=== PATIENT | male | born 1955 | race Caucasian/White ===

== ENCOUNTER 2020-07-29 15:17 | Inpatient (IN) | payer MEDICARE ==
[~2020-07-29] VITALS: Ht 172.7 cm; Wt 97.5 kg
[2020-07-29 16:07] LABS: BASOPHILS % 0.6 % (0.0-1.0); EOSINOPHILS # (AUTO) 0.1 (0.0-0.4); EOSINOPHILS % 2.2 % (0.0-6.0); HEMATOCRIT 41.8 % (38.2-49.6); HEMOGLOBIN 13.4 g/dL (14.0-18.0); LYMPHOCYTES # (AUTO) 1.3 (1.0-3.2); LYMPHOCYTES % 20.1 % (18.0-39.1); MEAN CORPUSCULAR HEMOGLOBIN 31.6 pg (28-32); MEAN CORPUSCULAR HGB CONC 32.1 g/dL (31-35); MEAN CORPUSCULAR VOLUME 98.6 fL (81-99); MONOCYTES # (AUTO) 0.3 (0.2-0.8); MONOCYTES % 4.2 % (4.4-11.3); NEUTROPHILS # (AUTO) 4.6 (2.1-6.9); NEUTROPHILS % 71.8 % (38.7-80.0); PLATELET COUNT 169 x10e3/uL (140-360); RED BLOOD COUNT 4.24 x10e6/uL (4.3-5.7); RED CELL DISTRIBUTION WIDTH 15.1 % (11.7-14.4)
[2020-07-29 16:54] LABS: ALBUMIN/GLOBULIN RATIO 1.1 (0.8-2.0); ANION GAP 23.4 mmol/L (8-16); CALCIUM 8.1 mg/dL (8.4-10.2); CREATININE, SERUM 3.73 mg/dL (0.72-1.25)
[2020-07-29 16:55] LABS: POTASSIUM 6.4 mmol/L (3.5-5.1)
[2020-07-29] MEDS ORDERED: SODIUM BICARBONATE 8.4% INJ 50 ML SYR IV STA (16:59)
[2020-07-29] MEDS ORDERED: CALCIUM GLUCONATE 10% INJ 4.65 MEQ in SODIUM CHLORIDE 0.9% 50ML 50 ML IV ONE (17:00)
[2020-07-29] MEDS ORDERED: INSULIN REGULAR, HUMAN 100 UNIT/1 ML 3ML VIAL IV ONE (17:00)
[2020-07-29] MEDS: SODIUM CHLORIDE 0.9% 1000ML 1,000 ML IV SCH (17:49)
[2020-07-29] MEDS ORDERED: SOD POLYSTYRENE SULFONATE SUSP 15 GM/60 ML BTL PO ONE (18:15)
[2020-07-29] MEDS ORDERED: CEFTRIAXONE 1 GM in SODIUM CHLORIDE 0.9% 50ML 50 ML IV SCH (20:00)
[2020-07-29] MEDS ORDERED: FUROSEMIDE INJ 10 MG/ML 4 ML VIAL IV ONE (20:30)
[2020-07-29 20:49] LABS: CLARITY,URINE CLEAR (CLEAR); COLOR,URINE YELLOW (YELLOW); KETONES,URINE NEGATIVE (NEGATIVE); LEUKOCYTE ESTERASE ,URINE NEGATIVE (NEGATIVE); NITRITE,URINE NEGATIVE (NEGATIVE); PROTEIN,URINE DIPSTICK NEGATIVE (NEGATIVE); URINE UROBILINOGEN 0.2 mg/dL (0.2 - 1)
[2020-07-29] MEDS: CEFTRIAXONE 1 GM in SODIUM CHLORIDE 0.9% 50ML 50 ML IV SCH (21:15)
[2020-07-29 23:30] VITALS: BP 117/79
[2020-07-30] VITALS (9 sets, daily range): BP systolic 117–152; BP diastolic 63–83
[2020-07-30] MEDS ORDERED: LASIX40 MG PO (01:40)
[2020-07-30] MEDS ORDERED: SPIRONOLACTONE25 MG PO (01:40)
[2020-07-30] MEDS ORDERED: CLONIDINE HCL0.1 MG PO (01:41)
[2020-07-30] MEDS ORDERED: ASPIRIN CHEW81 MG PO (01:41)
[2020-07-30] MEDS ORDERED: FLUOXETINE HCL20 MG PO (01:42)
[2020-07-30] MEDS ORDERED: GABAPENTIN800 MG PO (01:42)
[2020-07-30] MEDS ORDERED: ZOCOR20 MG PO (01:43)
[2020-07-30] MEDS ORDERED: CYANOCOBALAMIN IJ (01:49)
[2020-07-30] MEDS ORDERED: METFORMIN HCL500 MG PO (01:50)
[2020-07-30] MEDS ORDERED: GLIMEPIRIDE2 MG PO (01:51)
[2020-07-30] MEDS ORDERED: NOVOLIN 70100 UNIT/3 SC ×2 (01:52→02:05)
[2020-07-30] MEDS ORDERED: TRULICITY4.5 MG/0.5 SC (02:06)
[2020-07-30] MEDS ORDERED: FOLIC ACID-VIT1 EACH PO ×2 (02:12→02:20)
[2020-07-30] MEDS ORDERED: CLOBETASOL PROP15 G1 TOP (02:12)
[2020-07-30] MEDS ORDERED: METHOTREXATE2.5 MG PO (02:14)
[2020-07-30] MEDS ORDERED: JARDIANCE25 MG PO (02:16)
[2020-07-30] MEDS ORDERED: ALENDRONATE SOD70 MG PO (02:16)
[2020-07-30] MEDS ORDERED: HYDRALAZINE HC100 MG PO (02:17)
[2020-07-30] MEDS ORDERED: METOPROLOL SUCC50 MG PO (02:18)
[2020-07-30] MEDS ORDERED: LOSARTAN POTAS100 MG PO (02:18)
[2020-07-30] MEDS ORDERED: LISINOPRIL5 MG PO (02:19)
[2020-07-30] MEDS: SODIUM CHLORIDE 0.9% 1000ML 1,000 ML IV SCH ×3 (02:56→22:45)
[2020-07-30 05:04] LABS: BASOPHILS % 0.6 % (0.0-1.0); EOSINOPHILS # (AUTO) 0.1 (0.0-0.4); EOSINOPHILS % 2.6 % (0.0-6.0); HEMATOCRIT 35.5 % (38.2-49.6); HEMOGLOBIN 11.6 g/dL (14.0-18.0); LYMPHOCYTES % 29.5 % (18.0-39.1); MEAN CORPUSCULAR HEMOGLOBIN 32.6 pg (28-32); MEAN CORPUSCULAR HGB CONC 32.7 g/dL (31-35); MEAN CORPUSCULAR VOLUME 99.7 fL (81-99); MONOCYTES # (AUTO) 0.1 (0.2-0.8); NEUTROPHILS # (AUTO) 2.2 (2.1-6.9); NEUTROPHILS % 61.9 % (38.7-80.0); PLATELET COUNT 117 x10e3/uL (140-360); RED BLOOD COUNT 3.56 x10e6/uL (4.3-5.7)
[2020-07-30 05:18] LABS: ANION GAP 15.7 mmol/L (8-16); CREATININE, SERUM 2.61 mg/dL (0.72-1.25); POTASSIUM 4.7 mmol/L (3.5-5.1)
[2020-07-30] MEDS ORDERED: DEXTROSE 50% SYRINGE 50 ML IV PRN (10:00)
[2020-07-30] MEDS: INSULIN LISPRO 100 UNIT/1 ML 3ML VIAL SQ SCH ×3 (12:19→21:11)
[2020-07-30] MEDS ORDERED: FOLIC ACID0.4 MG PO (12:46)
[2020-07-30] MEDS: CEFTRIAXONE 1 GM in SODIUM CHLORIDE 0.9% 50ML 50 ML IV SCH (21:16)
[2020-07-31] VITALS (8 sets, daily range): BP systolic 119–157; BP diastolic 59–81
[2020-07-31 05:23] LABS: BASOPHILS % 0.7 % (0.0-1.0); EOSINOPHILS # (AUTO) 0.1 (0.0-0.4); EOSINOPHILS % 3.2 % (0.0-6.0); HEMATOCRIT 35.5 % (38.2-49.6); HEMOGLOBIN 11.6 g/dL (14.0-18.0); LYMPHOCYTES # (AUTO) 0.7 (1.0-3.2); LYMPHOCYTES % 24.7 % (18.0-39.1); MEAN CORPUSCULAR HEMOGLOBIN 31.4 pg (28-32); MEAN CORPUSCULAR HGB CONC 32.7 g/dL (31-35); MONOCYTES # (AUTO) 0.1 (0.2-0.8); MONOCYTES % 2.1 % (4.4-11.3); NEUTROPHILS # (AUTO) 1.9 (2.1-6.9); NEUTROPHILS % 67.9 % (38.7-80.0); PLATELET COUNT 129 x10e3/uL (140-360); RED BLOOD COUNT 3.69 x10e6/uL (4.3-5.7); RED CELL DISTRIBUTION WIDTH 14.4 % (11.7-14.4)
[2020-07-31 05:33] LABS: MEAN CORPUSCULAR VOLUME 96.2 fL (81-99)
[2020-07-31 05:54] LABS: ANION GAP 13.5 mmol/L (8-16); CALCIUM 7.8 mg/dL (8.4-10.2); CREATININE, SERUM 1.5 mg/dL (0.72-1.25); POTASSIUM 4.5 mmol/L (3.5-5.1)
[2020-07-31 05:57] LABS: MAGNESIUM 2.2 MG/DL (1.3-2.1); PHOSPHORUS 2.4 MG/DL (2.3-4.7)
[2020-07-31 06:19] LABS: THYROID STIMULATING HORMONE 0.833 uIU/mL (0.350-4.940)
[2020-07-31] MEDS: INSULIN LISPRO 100 UNIT/1 ML 3ML VIAL SQ SCH ×4 (07:30→21:00)
[2020-07-31 07:49] LABS: EOSINOPHILS % (MANUAL) 8 % (0-7); LYMPHOCYTES % (MANUAL) 21 % (19-48); METAMYELOCYTES % (MANUAL) 1 % (0-0); MONOCYTES % (MANUAL) 2 % (3.4-9.0); NEUTROPHILS % (MANUAL) 59 % (40-74)
[2020-07-31] MEDS: TAMSULOSIN HCL 0.4 MG CAP PO SCH ×2 (09:00→16:51)
[2020-07-31] MEDS: GABAPENTIN 300 MG CAP PO SCH ×3 (09:00→20:00)
[2020-07-31] MEDS: FOLIC ACID 1 MG TAB PO SCH (09:31)
[2020-07-31] MEDS ORDERED: HUMULIN 70/30 VIAL SQ SCH (16:30)
[2020-07-31] MEDS: CEFTRIAXONE 1 GM in SODIUM CHLORIDE 0.9% 50ML 50 ML IV SCH (20:00)
[2020-07-31] MEDS ORDERED: SIMVASTATIN 20 MG TAB PO SCH (21:00)
[2020-08-01] VITALS: BP 159/87
[2020-08-01 04:00] VITALS: BP 147/81
[2020-08-01 06:07] LABS: BASOPHILS % 0.8 % (0.0-1.0); EOSINOPHILS # (AUTO) 0.1 (0.0-0.4); HEMOGLOBIN 11.8 g/dL (14.0-18.0); LYMPHOCYTES # (AUTO) 0.9 (1.0-3.2); LYMPHOCYTES % 25.8 % (18.0-39.1); MEAN CORPUSCULAR HEMOGLOBIN 31.2 pg (28-32); MEAN CORPUSCULAR HGB CONC 31.9 g/dL (31-35); MEAN CORPUSCULAR VOLUME 97.9 fL (81-99); MONOCYTES # (AUTO) 0.1 (0.2-0.8); MONOCYTES % 2.8 % (4.4-11.3); NEUTROPHILS # (AUTO) 2.4 (2.1-6.9); NEUTROPHILS % 67.5 % (38.7-80.0); PLATELET COUNT 131 x10e3/uL (140-360); RED BLOOD COUNT 3.78 x10e6/uL (4.3-5.7); RED CELL DISTRIBUTION WIDTH 14.2 % (11.7-14.4)
[2020-08-01 06:36] LABS: ANION GAP 11.6 mmol/L (8-16); CALCIUM 8.1 mg/dL (8.4-10.2); CREATININE, SERUM 1.29 mg/dL (0.72-1.25); POTASSIUM 4.6 mmol/L (3.5-5.1)
[2020-08-01] MEDS: INSULIN LISPRO 100 UNIT/1 ML 3ML VIAL SQ SCH ×2 (07:30→11:30)
[2020-08-01] MEDS ORDERED: HUMULIN 70/30 VIAL SQ SCH (07:30)
[2020-08-01 08:00] VITALS: BP 145/67
[2020-08-01] MEDS: TAMSULOSIN HCL 0.4 MG CAP PO SCH (09:00)
[2020-08-01] MEDS: GABAPENTIN 300 MG CAP PO SCH (09:00)
[2020-08-01] MEDS: FOLIC ACID 1 MG TAB PO SCH (09:00)
[2020-08-01 11:44] VITALS: BP 146/87
[2020-08-01] MEDS ORDERED: FLOMAX0.4 MG PO (13:56)
== END 2020-08-01 14:52 | disposition home or self-care (01) | DRG 683 ==
LOC: ER 15:46 → ERHOLD 17:11 → MED/SURG2 23:09
PROVIDERS: ADMIT Internal Medicine; ATTEND Internal Medicine
DX: N17.9 Acute kidney failure, unspecified (principal); N13.8 Other obstructive and reflux uropathy; E87.5 Hyperkalemia; N40.1 Benign prostatic hyperplasia with lower urinary tract symptoms; E11.22 Type 2 diabetes mellitus with diabetic chronic kidney disease; I12.9 Hypertensive chronic kidney disease with stage 1 through stage 4 chronic kidney disease, or unspecified chronic kidney disease; N18.9 Chronic kidney disease, unspecified; E78.5 Hyperlipidemia, unspecified; Z79.4 Long term (current) use of insulin; E11.42 Type 2 diabetes mellitus with diabetic polyneuropathy; Z88.0 Allergy status to penicillin; D69.6 Thrombocytopenia, unspecified; E66.9 Obesity, unspecified; E83.51 Hypocalcemia; D64.9 Anemia, unspecified; N47.1 Phimosis; Z68.32 Body mass index [BMI] 32.0-32.9, adult; Z20.822 Contact with and (suspected) exposure to COVID-19
CPT/HCPCS: 36415; 51700; 71045; 74176; 80048; 80053; 81001; 82746; 82948; 83036; 83540; 83735; 84100; 84132; 84443; 84466; 85025; 93005; 96361; 99284; J0610; J0696; J7030; U0002

== ENCOUNTER 2020-08-19 04:12 | Emergency (ER) | payer MEDICARE ==
[~2020-08-19] VITALS: Ht 325.1 cm; Wt 97.5 kg
[~2020-08-19 04:12] MED LIST: ALENDRONATE SOD70 MG PO; ASPIRIN CHEW81 MG PO; CLOBETASOL PROP15 G1 TOP; CLONIDINE HCL0.1 MG PO; CYANOCOBALAMIN IJ; FLOMAX0.4 MG PO; FLUOXETINE HCL20 MG PO; FOLIC ACID-VIT1 EACH PO; FOLIC ACID0.4 MG PO; GABAPENTIN800 MG PO; GLIMEPIRIDE2 MG PO; HYDRALAZINE HC100 MG PO; JARDIANCE25 MG PO; LASIX40 MG PO; LISINOPRIL5 MG PO; LOSARTAN POTAS100 MG PO; METFORMIN HCL500 MG PO; METHOTREXATE2.5 MG PO; METOPROLOL SUCC50 MG PO; NOVOLIN 70100 UNIT/3 SC; SPIRONOLACTONE25 MG PO; TRULICITY4.5 MG/0.5 SC; ZOCOR20 MG PO
== END 2020-08-19 06:00 | disposition home or self-care (01) ==
LOC: ER 04:33
DX: Z46.6 Encounter for fitting and adjustment of urinary device (principal); I10 Essential (primary) hypertension; E11.40 Type 2 diabetes mellitus with diabetic neuropathy, unspecified; I50.9 Heart failure, unspecified; I73.9 Peripheral vascular disease, unspecified; L40.9 Psoriasis, unspecified
CPT/HCPCS: 99282

== ENCOUNTER 2021-08-02 11:16 | Inpatient (IN) | payer MEDICARE ==
[~2021-08-02] VITALS: Ht 162.6 cm; Wt 92.5 kg
[2021-08-02] MEDS ORDERED: ONDANSETRON HCL INJ 2MG/ML 2ML 2 MG/ML VIAL IV STA (11:42)
[2021-08-02] MEDS ORDERED: ASPIRIN 325 MG TAB PO ONE (11:45)
[2021-08-02] MEDS ORDERED: Morphine 4mg INJECTION 4 MG/ML INJ IV ONE (11:45)
[2021-08-02 12:00] LABS: BASOPHILS # (AUTO) 0.1 (0.0-0.1); BASOPHILS % 0.9 % (0.0-1.0); EOSINOPHILS # (AUTO) 0.1 (0.0-0.4); EOSINOPHILS % 0.6 % (0.0-6.0); HEMATOCRIT 51.7 % (38.2-49.6); HEMOGLOBIN 17.1 g/dL (14.0-18.0); LYMPHOCYTES # (AUTO) 1.8 (1.0-3.2); MEAN CORPUSCULAR HEMOGLOBIN 31.7 pg (28-32); MEAN CORPUSCULAR HGB CONC 33.1 g/dL (31-35); MEAN CORPUSCULAR VOLUME 95.9 fL (81-99); MONOCYTES # (AUTO) 0.7 (0.2-0.8); MONOCYTES % 8.2 % (4.4-11.3); NEUTROPHILS # (AUTO) 5.4 (2.1-6.9); NEUTROPHILS % 65.4 % (38.7-80.0); PLATELET COUNT 183 x10e3/uL (140-360); RED BLOOD COUNT 5.39 x10e6/uL (4.3-5.7); RED CELL DISTRIBUTION WIDTH 14.7 % (11.7-14.4)
[2021-08-02 12:16] LABS: INR 0.98; PROTHROMBIN TIME 13.9 seconds (11.9-14.5)
[2021-08-02 12:17] LABS: PARTIAL THROMBOPLASTIN TIME 27.2 seconds (23.8-35.5)
[2021-08-02 12:27] LABS: ALANINE AMINOTRANSFERASE 35 IU/L (0-55); ALBUMIN/GLOBULIN RATIO 0.9 (0.8-2.0); ALKALINE PHOSPHATASE 103 IU/L (40-150); ANION GAP 19.7 mmol/L (8-16); BLOOD UREA NITROGEN 39 mg/dL (7-26); BUN/CREATININE RATIO 21 (6-25); CALCIUM 10.5 mg/dL (8.4-10.2); CARBON DIOXIDE 25 mmol/L (22-29); CHLORIDE 96 mmol/L (98-107); CREATINE KINASE 45 IU/L (30-200); GLUCOSE 256 mg/dL (74-118); POTASSIUM 4.7 mmol/L (3.5-5.1); SODIUM 136 mmol/L (136-145)
[2021-08-02] MEDS ORDERED: ACETAMINOPHEN 325 MG TAB PO ONE (17:00)
[2021-08-02] MEDS ORDERED: ONDANSETRON HCL INJ 2MG/ML 2ML 2 MG/ML VIAL IV PRN (17:15)
[2021-08-02] MEDS ORDERED: DEXTROSE 50% SYRINGE 50 ML IV PRN ×2 (17:15→21:30)
[2021-08-02] MEDS ORDERED: ACETAMINOPHEN 325 MG TAB PO PRN (17:15)
[2021-08-02] MEDS ORDERED: Morphine 4mg INJECTION 4 MG/ML INJ IV PRN (17:15)
[2021-08-02 18:49] LABS: CREATINE KINASE 34 IU/L (30-200)
[2021-08-02 20:00] VITALS: BP 150/95
[2021-08-02 20:02] VITALS: BP 150/95
[2021-08-02] MEDS ORDERED: METOPROLOL TAR100 MG PO (20:30)
[2021-08-02] MEDS: INSULIN REGULAR, HUMAN 100 UNIT/1 ML SQ SCH (21:00)
[2021-08-02] MEDS ORDERED: SPIRONOLACTONE25 MG PO (22:31)
[2021-08-02] MEDS: HYDRALAZINE HCL 100 MG TABLET PO SCH (22:34)
[2021-08-02] MEDS: SIMVASTATIN 20 MG TAB PO SCH (22:34)
[2021-08-03] VITALS (8 sets, daily range): BP systolic 131–141; BP diastolic 77–82
[2021-08-03] MEDS ORDERED: DOCUSATE SODIUM 100 MG CAP PO PRN
[2021-08-03] MEDS ORDERED: ACETAMINOPHEN 325 MG TAB PO PRN
[2021-08-03 06:02] LABS: BASOPHILS % 0.5 % (0.0-1.0); EOSINOPHILS # (AUTO) 0.1 (0.0-0.4); EOSINOPHILS % 0.9 % (0.0-6.0); HEMATOCRIT 49.8 % (38.2-49.6); HEMOGLOBIN 16.6 g/dL (14.0-18.0); LYMPHOCYTES # (AUTO) 1.2 (1.0-3.2); LYMPHOCYTES % 15.7 % (18.0-39.1); MEAN CORPUSCULAR HEMOGLOBIN 31.3 pg (28-32); MEAN CORPUSCULAR HGB CONC 33.3 g/dL (31-35); MONOCYTES # (AUTO) 0.6 (0.2-0.8); NEUTROPHILS # (AUTO) 5.6 (2.1-6.9); NEUTROPHILS % 73.3 % (38.7-80.0); PLATELET COUNT 150 x10e3/uL (140-360); RED CELL DISTRIBUTION WIDTH 14.5 % (11.7-14.4)
[2021-08-03] MEDS ORDERED: INSULIN REGULAR, HUMAN 100 UNIT/1 ML SQ SCH (07:30)
[2021-08-03 07:35] LABS: ALBUMIN 3.6 g/dL (3.5-5.0); ALBUMIN/GLOBULIN RATIO 0.9 (0.8-2.0); ANION GAP 21.4 mmol/L (8-16); CALCIUM 9.1 mg/dL (8.4-10.2); CREATININE, SERUM 1.83 mg/dL (0.72-1.25); POTASSIUM 4.4 mmol/L (3.5-5.1)
[2021-08-03] MEDS: INSULIN REGULAR, HUMAN 100 UNIT/1 ML SQ SCH ×4 (08:00→21:00)
[2021-08-03 08:04] LABS: CHOL/HDL RATIO 3.7 (3.9-4.7)
[2021-08-03] MEDS ORDERED: ASPIRIN 81 MG CHEW TAB PO SCH (09:00)
[2021-08-03] MEDS: ASPIRIN 81 MG ENTERIC COATED PO SCH (09:00)
[2021-08-03] MEDS: METOPROLOL TARTRATE 50 MG TAB PO SCH ×2 (10:00→16:35)
[2021-08-03 14:30] LABS: CREATINE KINASE MB 2.5 ng/mL (0-5.0)
[2021-08-03] MEDS ORDERED: ENOXAPARIN SOD INJ 40 MG/0.4 ML SYR SC SCH (17:00)
[2021-08-03] MEDS: SIMVASTATIN 20 MG TAB PO SCH (21:00)
[2021-08-03] MEDS ORDERED: SIMVASTATIN 20 MG TAB PO SCH (21:00)
[2021-08-03] MEDS: HYDRALAZINE HCL 100 MG TABLET PO SCH (21:00)
[2021-08-03] MEDS ORDERED: HYDRALAZINE HCL 100 MG TABLET PO SCH (21:00)
[2021-08-04] VITALS: BP 121/59
[2021-08-04 04:32] VITALS: BP 127/65
[2021-08-04] MEDS: INSULIN REGULAR, HUMAN 100 UNIT/1 ML SQ SCH ×2 (07:30→12:02)
[2021-08-04 08:17] VITALS: BP 115/73
[2021-08-04] MEDS: ASPIRIN 81 MG ENTERIC COATED PO SCH (09:20)
[2021-08-04] MEDS: METOPROLOL TARTRATE 50 MG TAB PO SCH (09:20)
[2021-08-04 09:32] VITALS: BP 115/73
[2021-08-04] MEDS ORDERED: REGADENOSON 0.4 MG/5 ML SYR IV ONE (11:06)
[2021-08-04] MEDS ORDERED: ONDANSETRON HCL 4 MG ORAL DISINTEGRATING TAB PO PRN (13:00)
[2021-08-04 15:16] VITALS: BP 124/71
[2021-08-05] MEDS ORDERED: HUMULIN 70/30 VIAL SQ SCH (07:30)
[2021-08-05] MEDS ORDERED: FUROSEMIDE 40 MG TAB PO SCH (09:00)
[2021-08-05] MEDS ORDERED: INSULIN NPH HUM SC SCH (09:00)
[2021-08-05] MEDS ORDERED: REG INSULIN SC SCH (09:00)
[2021-08-05] MEDS ORDERED: [UNRECOGNIZED DRUG - OTHER] SC SCH (09:00)
[2021-08-06] MEDS ORDERED: DULAGLUTIDE 4.5 MG/0.5 ML SC SCH (10:00)
== END 2021-08-04 16:53 | disposition home or self-care (01) | DRG 313 ==
LOC: ER 11:30 → ERHOLD 17:07 → MED/SURG 19:28 → OBSVTOIN 08-03 20:10
PROVIDERS: ADMIT Internal Medicine; ATTEND Internal Medicine
DX: R07.89 Other chest pain (principal); I13.0 Hypertensive heart and chronic kidney disease with heart failure and stage 1 through stage 4 chronic kidney disease, or unspecified chronic kidney disease; N18.30 Chronic kidney disease, stage 3 unspecified; E66.9 Obesity, unspecified; Z68.35 Body mass index [BMI] 35.0-35.9, adult; E78.5 Hyperlipidemia, unspecified; Z20.822 Contact with and (suspected) exposure to COVID-19; Z79.899 Other long term (current) drug therapy; E11.22 Type 2 diabetes mellitus with diabetic chronic kidney disease; I50.9 Heart failure, unspecified
CPT/HCPCS: 36415; 71045; 78452; 80053; 80061; 82550; 82553; 82948; 83036; 84484; 85025; 85610; 85730; 93005; 93017; 93306; 94799; 96372; 99284; A9502; G0378; J1650; J1817; J2270; J2405

== ENCOUNTER 2021-11-02 12:28 | Emergency (ER) | payer MEDICARE ==
[~2021-11-02] VITALS: Ht 162.6 cm; Wt 92.5 kg
[~2021-11-02 12:28] MED LIST changes: +METOPROLOL TAR100 MG PO
[2021-11-02 13:15] LABS: BASOPHILS # (AUTO) 0.1 (0.0-0.1); EOSINOPHILS # (AUTO) 0.1 (0.0-0.4); EOSINOPHILS % 0.9 % (0.0-6.0); HEMATOCRIT 50.3 % (38.2-49.6); HEMOGLOBIN 16.6 g/dL (14.0-18.0); LYMPHOCYTES # (AUTO) 1.4 (1.0-3.2); MEAN CORPUSCULAR HEMOGLOBIN 31.9 pg (28-32); MEAN CORPUSCULAR VOLUME 96.5 fL (81-99); MONOCYTES # (AUTO) 0.5 (0.2-0.8); MONOCYTES % 7.6 % (4.4-11.3); NEUTROPHILS # (AUTO) 4.5 (2.1-6.9); NEUTROPHILS % 65.1 % (38.7-80.0); PLATELET COUNT 161 x10e3/uL (140-360); RED BLOOD COUNT 5.21 x10e6/uL (4.3-5.7); RED CELL DISTRIBUTION WIDTH 13.2 % (11.7-14.4)
[2021-11-02] MEDS ORDERED: SODIUM CHLORIDE FLUSH 10 ML SYR IV PRN (13:15)
[2021-11-02 13:36] LABS: ALBUMIN 3.8 g/dL (3.5-5.0); ALBUMIN/GLOBULIN RATIO 1.2 (0.8-2.0); ANION GAP 16.7 mmol/L (8-16); CALCIUM 8.6 mg/dL (8.4-10.2); CREATININE, SERUM 1.53 mg/dL (0.72-1.25); POTASSIUM 4.7 mmol/L (3.5-5.1)
[2021-11-02] MEDS ORDERED: SODIUM CHLORIDE 0.9% 1000ML 1,000 ML IV ONE (13:45)
[2021-11-02] MEDS ORDERED: INSULIN REGULAR, HUMAN 100 UNIT/1 ML IV ONE (13:45)
[2021-11-02] MEDS ORDERED: PROAIR HFA INH8.5 GM PO (15:08)
[2021-11-02] MEDS ORDERED: BENZONATATE200 MG PO (15:08)
== END 2021-11-02 16:10 | disposition home or self-care (01) ==
LOC: ER 12:55
DX: J06.9 Acute upper respiratory infection, unspecified (principal); E11.65 Type 2 diabetes mellitus with hyperglycemia; E11.42 Type 2 diabetes mellitus with diabetic polyneuropathy; E11.51 Type 2 diabetes mellitus with diabetic peripheral angiopathy without gangrene; I11.0 Hypertensive heart disease with heart failure; I50.9 Heart failure, unspecified; Z88.0 Allergy status to penicillin; Z20.822 Contact with and (suspected) exposure to COVID-19
CPT/HCPCS: 36415; 71045; 80053; 82948; 83880; 84484; 85025; 93005; 94760; 99284; J1817; J7030

== ENCOUNTER → 2024-05-01 | Day surgery (SDC) | payer MEDICARE ==
[~2024-05-01] MED LIST changes: +ACETAMINOPHEN325 M1 PO; +BENZONATATE200 MG PO; +Docusate Sodium PO; +GLUCAGON FOR INJ 1 MG VIAL ONE; +HYDROCODON-ACE1 EA11 PO; +LEVOFLOXACIN750 MG PO; +METHOCARBAMOL750 MG PO; +NAPROSYN500 MG PO; +NEURONTIN300 MG PO; +NOVOLOG MI100 UNIT/1 SC; +ONDANSETRON ODT4 MG PO; +OZEMPIC2 MG/0.75; +PROAIR HFA INH8.5 GM PO; +PROPOFOL IV EMULSION 10 MG/ML 20 ML VIAL ONE; +SYMBICORT 16010.2 GM INH
[2024-05-01 11:05] VITALS: TEMP 98.7
[2024-05-01 11:35] VITALS: BP 135/72; PULSE 62; RESP 12; O2SAT 97
== END | disposition home or self-care (01) ==
LOC: OR 08:57
PROVIDERS: ATTEND Internal Medicine Gastroenterology
DX: Z09 Encounter for follow-up examination after completed treatment for conditions other than malignant neoplasm (principal); D12.4 Benign neoplasm of descending colon; D12.5 Benign neoplasm of sigmoid colon; K57.30 Diverticulosis of large intestine without perforation or abscess without bleeding; K64.8 Other hemorrhoids; E11.9 Type 2 diabetes mellitus without complications; I10 Essential (primary) hypertension; Z88.0 Allergy status to penicillin; Z88.2 Allergy status to sulfonamides; Z79.84 Long term (current) use of oral hypoglycemic drugs; Z79.85 Long-term (current) use of injectable non-insulin antidiabetic drugs; Z79.4 Long term (current) use of insulin
CPT/HCPCS: 45385; J1610; J2704; 45378

== ENCOUNTER 2024-05-12 13:18 | Emergency (ER) | payer MEDICARE ==
[~2024-05-12] VITALS: Ht 162.6 cm; Wt 88.5 kg
[~2024-05-12 13:18] MED LIST changes: -GLUCAGON FOR INJ 1 MG VIAL ONE; -LEVOFLOXACIN750 MG PO; -PROPOFOL IV EMULSION 10 MG/ML 20 ML VIAL ONE
[2024-05-12 13:29] VITALS: PULSE 71; RESP 16; TEMP 98.9
[2024-05-12] MEDS ORDERED: LEVOFLOXACIN750 MG PO (14:13)
[2024-05-12 14:18] VITALS: BP 148/70; PULSE 77; RESP 16; TEMP 98.7; O2SAT 98
== END 2024-05-12 14:27 | disposition home or self-care (01) ==
LOC: ER 14:07
DX: E11.621 Type 2 diabetes mellitus with foot ulcer (principal); L08.9 Local infection of the skin and subcutaneous tissue, unspecified; I10 Essential (primary) hypertension; I50.9 Heart failure, unspecified; E78.5 Hyperlipidemia, unspecified; I73.9 Peripheral vascular disease, unspecified
CPT/HCPCS: 99283